=== PATIENT | male | born 1965 | race Caucasian/White ===

== ENCOUNTER 2023-10-14 06:06 | Day surgery (SDC) | payer OTHER ==
[2023-10-06 15:20] LABS: BASOPHILS # (AUTO) 0.04 K/uL (0.00-0.20); BASOPHILS % (AUTO) 0.6 % (0.0-5.0); EOSINOPHILS # (AUTO) 0.16 K/uL (0.00-0.70); EOSINOPHILS % (AUTO) 2.3 % (0.0-8.0); HEMATOCRIT 47.8 % (42-54); IMMATURE GRANULOCYTE ABSOLUTE 0.04 K/uL (0-1); LYMPHOCYTES # (AUTO) 1.7 K/uL (1.0-4.8); LYMPHOCYTES % (AUTO) 24.4 % (21.0-51.0); MEAN CORPUSCULAR HEMOGLOBIN 29.4 pg (27.0-33.0); MEAN CORPUSCULAR HGB CONC 33.5 g/dL (32.0-36.0); MEAN CORPUSCULAR VOLUME 87.7 fL (79-99); MONOCYTES # (AUTO) 0.5 K/uL (0.1-1.0); MONOCYTES % (AUTO) 6.6 % (3.0-13.0); NEUTROPHILS # (AUTO) 4.6 K/uL (1.8-7.7); NEUTROPHILS % (AUTO) 65.5 % (40.0-77.0); PLATELET COUNT (AUTO) 243 K/uL (130-400); RED BLOOD CELL COUNT(AUTO) 5.45 MIL/uL (4.50-6.20); RED CELL DISTRIBUTION WIDTH 12.5 % (11.0-15.5)
[2023-10-06 15:29] LABS: POTASSIUM 3.7 mmol/L (3.5-5.1)
[2023-10-06 15:31] LABS: INR 0.94 (0.85-1.15); PROTHROMBIN TIME 10.9 SEC (9.6-11.6)
[2023-10-06 15:33] LABS: PARTIAL THROMBOPLASTIN TIME 29.7 SEC (26.3-35.5)
[2023-10-06 15:35] VITALS: BP 122/72; PULSE 75; RESP 16
[2023-10-14] VITALS (17 sets, daily range): BP systolic 111–148; BP diastolic 67–90; PULSE 65–91; RESP 12–18
[~2023-10-14] VITALS: Ht 167.6 cm; Wt 102.6 kg
[~2023-10-14 06:06] MED LIST: PRAV20TA4 PO
[2023-10-14] MEDS ORDERED: LACTATED RINGERS 1000ML 1,000 ML IV ONE (06:41)
[2023-10-14] MEDS ORDERED: CEFAZOLIN SODIUM 2 GM VIAL ONE (06:41)
[2023-10-14] MEDS ORDERED: BUPIVACAINE/PF 0.25% 30ML VIAL IJ ONE (06:42)
[2023-10-14] MEDS ORDERED: ONDANSETRON 4MG INJ ONE ×2 (07:17→08:46)
[2023-10-14] MEDS ORDERED: LIDOCAINE PF 100MG/5ML (2%) SYRINGE 5ML ONE (07:17)
[2023-10-14] MEDS ORDERED: DEXAMETHASONE SOD PHOSPHATE 10MG/ML 1ML VIAL ONE (07:17)
[2023-10-14] MEDS ORDERED: SUCCINYLCHOLINE CHLORIDE 20 MG/ML 10 ML VIAL ONE (07:17)
[2023-10-14] MEDS ORDERED: ROCURONIUM 10MG/1ML SYR 10 MG/ML ML ONE (07:18)
[2023-10-14] MEDS ORDERED: FENTANYL CITRATE PF 50 MCG/1 ML 2ML VIAL ONE (07:18)
[2023-10-14] MEDS ORDERED: NEOSTIGMINE 5MG/5ML SYR IV ONE (07:18)
[2023-10-14] MEDS ORDERED: MIDAZOLAM HCL 1 MG/ML 2ML VIAL ONE (07:18)
[2023-10-14] MEDS ORDERED: GLYCOPYRROLATE 1 MG/5 ML SYRINGE ONE (07:18)
[2023-10-14] MEDS ORDERED: PROPOFOL 10 MG/ML 20ML VIAL IV ONE (07:18)
[2023-10-14] MEDS ORDERED: LIDOCAINE HCL 4% LTA SOL 4 ML VIAL ONE (07:20)
[2023-10-14] MEDS ORDERED: ROPIVACAINE 0.5% 5MG/ML 30ML ONE (07:26)
[2023-10-14] MEDS ORDERED: 0.9%NACL 10ML VIAL ONE (07:26)
[2023-10-14] MEDS ORDERED: TRAM50TA4 PO (08:14)
[2023-10-14] MEDS ORDERED: GABA-529 PO (08:14)
[2023-10-14] MEDS ORDERED: DOCU-116 PO (08:14)
[2023-10-14] MEDS ORDERED: METH-662 PO (08:14)
[2023-10-14] MEDS ORDERED: KETOROLAC 30MG VIAL (30MG/ML) ONE (08:47)
[2023-10-14] MEDS ORDERED: MEPERIDINE-PF 25 MG/ML SYG ONE (08:47)
== END 2023-10-14 10:10 | disposition home or self-care (01) ==
LOC: DAH 06:06
PROVIDERS: ATTEND Surgery
DX: K43.6 Other and unspecified ventral hernia with obstruction, without gangrene (principal); I10 Essential (primary) hypertension; E11.9 Type 2 diabetes mellitus without complications; E78.5 Hyperlipidemia, unspecified; Z79.01 Long term (current) use of anticoagulants; Z79.899 Other long term (current) drug therapy; Z98.890 Other specified postprocedural states; Z87.891 Personal history of nicotine dependence
CPT/HCPCS: 80048; 85025; 85610; 85730; 36415; 49592; 64488; 82948; A6260; A4663; J7030 ×2; J7120 ×2; J3010; J3490; J1100; J2710; J0330; J2001; J2250; J2704; J2405 ×2; J1885; J2175; J2795; J0690; C1769 ×2; A4649 ×2; A4930 ×2; A5120; A4215; A4223; A4222; A4221; A4600; J0665